=== PATIENT | female | born 1970 | race Caucasian/White ===

== ENCOUNTER → 2018-08-02 | Outpatient (CLI) | payer BC, OTHER ==
--- NOTE | ~2018-08-02 | EXE ---
[facility] [place] [address] STRESS ECHOCARDIOGRAM Name: FRANK ANAND [id number] Admission: 08/02/18 Attend Phys: Logan Maurice Discharge: Date of : 66 Date of Service: 08/02/18 1411 Report #: [id number] THIS REPORT FOR: //name// APPROVED REPORT Study performed: 08/02/2018 13:07:05 Exam: Stress Echocardiogram Indication: Palpitations/arrhythmia Patient Location: Out-Patient Stress Nurse: Mckenna Latham RN Status: routine Ht: 5 ft 1 in HR: 63 bpm BP: 116/79 mmHg Rhythm: NSR Medical History Medical History: none Medications: No cardiac meds Allergies: No known drug allergies Cardiac Risk Factors: None Procedure The patient underwent an Exercise Stress Test using the Anthony Protocol. Blood pressure, heart rate, and EKG were monitored. An Echocardiogram was performed by maintenance shop technician in four stages in quad fashion. At peak stress, four selected images were obtained and placed side by side with resting images for comparison. Stress Test Details Stress Test: Exercise stress testing was performed using a Anthony protocol. HR Resting HR: 63 bpm Max Heart Rate (APMHR): 170 bpm Max HR Achieved: 179 bpm Target HR (85% APMHR): 144 bpm % of APMHR: 105 Recovery HR: 98 bpm HR response to stress: Normal HR response to stress BP Resting BP: 116/79 mmHg Max BP: 158/76 mmHg Recovery BP: 110/70 mmHg [facility] [address] [place] [address] STRESS ECHOCARDIOGRAM Name: GLENIS ANANDNDY OCTAVIO Room #: REG CL Tomas.#: [id number] Admission: 08/02/18 Attend Phys: Logan Maurice Discharge: Date of : 66 Date of Service: 08/02/18 1411 Report #: [id number] Resting ECG: Sinus Rhythm Stress ECG: Sinus Tachycardia Arrhythmia: None Recovery ECG: Sinus Rhythm Clinical Reason for Termination: Completed protocol/Fatigue Stress Symptoms: None Exercise duration: 10 min 34 sec Highest Stage Achieved: Stage 4: 4.2 mph at 16% grade. Exercise capacity: 13.4 METs Stress ECG Conclusion 1. Subjectively negative for ischemia 2. Elective cardiographic negative for ischemia 3. Adequate functional capacity Pre-Stress Echo The resting Echocardiogram showed normal left ventricular contractility with an estimated Ejection Fraction of about 55-60%. No significant valvular abnormalities noted. Normal wall motion in all segments on baseline images. Post-Stress Echo The stress Echocardiogram showed normal left ventricular contractility with an estimated Ejection Fraction of about 60-65%. Normal augmentation of wall motion in all segments on post stress images. Conclusion Clinical Response: Non-ischemic Exercise Capacity: Superior Stress ECG Response: Non-ischemic Stress Echo Images: Non-ischemic 1. Low risk study Other Information Study Quality: Good <Conclusion> 1. Low risk study <ELECTRONICALLY SIGNED> By: Logan Mei MD 08/02/181410 10 10 Logan Mei MD /INF
== END ==
LOC: CV 07:04
DX: I49.9 Cardiac arrhythmia, unspecified (principal); R00.2 Palpitations